=== PATIENT | male | born 1945 | race Caucasian/White ===

== ENCOUNTER 2019-04-11 09:38 | Emergency (ER) | payer MEDICARE, OTHER ==
--- NOTE | 2019-04-11 09:58 | EDM.PDOC ---
ED HPI GENERAL MEDICAL PROBLEM - General Chief Complaint: General Stated Complaint: DENTAL WORK/BLEEDING Time Seen by Provider: 04/11/19 09:58 - History of Present Illness INITIAL COMMENTS - FREE TEXT/NARRATIVE: Tyrell is seen today for dental bleeding. He had a tooth extracted , appears to be #1 tooth, on 04/03/2019 at his dentist in [place], [place]. He has is in [facility] for a-flutter/a-fib and he was not instructed to hold this. He had a suture placed where the tooth was extracted. He had no problems with bleeding until yesterday (04/10) and his called the dentist but she was able to get it to stop without being seen. He woke up this morning with a mouth full of blood and was unable to get it to stop. 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 They reside in [place]. He has no pain, he feels slightly dizzy but this is more chronic in nature. He has many comorbidities including COPD (severe, not O2 dependent), DM, CAD with stenting x 3, Hx [place], osteoporosis and depression. He has not been vomiting any blood, no concern for aspiration. - Related Data Allergies Allergy/AdvReac Type Severity Reaction Status Date / Time lisinopril Allergy Cough Verified 04/11/19 09:45 Home Meds: Home Meds ALPRAZolam [Alprazolam] 0.25 mg PO ASDIRECTED PRN 04/11/19 [History] Albuterol Sulfate [Proair Hfa] 2 puff INH ASDIRECTED PRN 04/11/19 [History] Apixaban [Eliquis] 5 mg PO BID 04/11/19 [History] Diltiazem HCl [Diltiazem 24Hr ER] 240 mg PO DAILY 04/11/19 [History] Finasteride 5 mg PO DAILY 04/11/19 [History] Fluticasone/Vilanterol [Breo Ellipta 200-25 MCG Inhalation Kit] 1 puff INH DAILY 04/11/19 [History] Furosemide 40 mg PO DAILY 04/11/19 [History] [place] Carbonate [[place] Carbonate ER] 450 mg PO DAILY 04/11/19 [History] Rosuvastatin Calcium 20 mg PO BEDTIME 04/11/19 [History] Sotalol HCl [Sotalol] 120 mg PO BID 04/11/19 [History] Tamsulosin HCl 0.4 mg PO DAILY 04/11/19 [History] Tranylcypromine Sulfate [Parnate] 30 mg PO BID 04/11/19 [History] Past Medical History Cardiovascular History: Reports: Afib, [place] Respiratory History: Reports: COPD Endocrine/Metabolic History: Reports: Diabetes, Type II, Osteoporosis ED ROS GENERAL - Review of Systems Review Of Systems: See Below Constitutional: Reports: No Symptoms HEENT: Reports: Other (Dental bleeding) Respiratory: Reports: No Symptoms Cardiovascular: Reports: No Symptoms Endocrine: Reports: No Symptoms GI/Abdominal: Reports: No Symptoms : Reports: No Symptoms Musculoskeletal: Reports: No Symptoms Skin: Reports: No Symptoms Neurological: Reports: No Symptoms Psychiatric: Reports: No Symptoms Hematologic/Lymphatic: Reports: No Symptoms Immunologic: Reports: No Symptoms ED EXAM, GENERAL - Physical Exam Exam: See Below Exam Limited By: No Limitations General Appearance: Alert, No Apparent Distress Throat/Mouth: Other (Bleeding from area near #1 tooth (which is removed). Blood appears to be venous. There is some congealed blood near his cheek.) Neck: Normal Inspection Respiratory/Chest: Decreased Breath Sounds Cardiovascular: Irregularly Irregular Course - Vital Signs Last Recorded V/S: Last Vital Signs Temp 97.1 F 04/11/19 09:40 Pulse 80 04/11/19 09:40 Resp 18 04/11/19 09:40 BP 145/66 H 04/11/19 09:40 Pulse Ox 91 L 04/11/19 09:40 - Re-Assessments/Exams Free Text/Narrative Re-Assessment/Exam: He initially ahd a wet washcloth in his mouth that was covered with blood. Evaluation showed blood dripping from the area of tooth #1 (removed). I attempted to pack this area with Surgicel and this did not work. We then placed an ice pack to his cheek and had him bite down on a rolled wet 4x4 gauze for several minutes. The bleeding seemed to have slowed down and I attempted to place another Surgicel but this did not work and he started to bleed again. He then had another wet 4x4 rolled gauze placed and he bit down on this. I contacted [facility] and spoke to the ER provider. There is no [facility] or dentistry paving contractor and he had no other suggestions for me aside from what I have already tried here. Their recommendation was for him to present immediately to the dentist of their choice for definitive management. Vital signs stable. 04/11/19 10:52 04/11/19 10:57 They are able to get in with a dentist in [place] at 1:00 PM today (04/11). Their recommendation was to moisten a black tea back and place it in the area with gauze. If they are unable to get it stopped they will coordinate getting him in with [facility]. Departure - Departure Time of Disposition: 10:51 Disposition: Home, Self-Care 01 Condition: Fair Clinical Impression: Bleeding - Discharge Information *PRESCRIPTION DRUG MONITORING PROGRAM REVIEWED*: Not Applicable *COPY OF PRESCRIPTION DRUG MONITORING REPORT IN PATIENT EMMIE: Not Applicable Referrals: Citlali Rubio MD [Primary Care Provider] - Forms: ED Department Discharge Additional Instructions: Present to the dentist of your choice as soon as possible for definitive control of bleeding. Keep the wet, rolled gauze in your mouth until evaluated by dentist, change as necessary. You may cough up blood of vomit blood due to the bleeding. Hold Eliquis until instructed to resume by your dentist. Sepsis Event Note - Evaluation Sepsis Screening Result: No Definite Risk - Focused Exam Vital Signs: Vital Signs Temp Pulse Resp BP Pulse Ox 04/11/19 09:40 97.1 F 80 18 145/66 H 91 L Date Exam was Performed: 04/11/19 Time Exam was Performed: 10:59 - Assessment/Plan Assessment:: Dental bleeding Plan: Present to the dentist of your choice as soon as possible for definitive control of bleeding. Keep the wet, rolled gauze in your mouth until evaluated by dentist, change as necessary. You may cough up blood of vomit blood due to the bleeding. Hold Eliquis until instructed to resume by your dentist.
== END 2019-04-11 11:05 | disposition home or self-care (01) ==
LOC: KA.ED 09:38
DX: K91.89 Other postprocedural complications and disorders of digestive system (principal); I25.2 Old myocardial infarction; E11.9 Type 2 diabetes mellitus without complications; Z79.899 Other long term (current) drug therapy
CPT/HCPCS: 99283